=== PATIENT | male | born 2000 | race Caucasian/White ===

== ENCOUNTER 2018-11-24 09:30 | Emergency (ER) | payer SELFPAY ==
[2018-11-24 10:08] VITALS: BP 129/86
--- NOTE | 2018-11-24 10:44 | UC ---
Neck Pain HPI - HPI Summary HPI Summary: 18-year-old male comes in with a chief complaint of right neck pain. 2 days ago he turned his head to the right and had sudden onset of severe pain on the right side of his neck primarily upper neck. Pain is worse with any kind of movement primarily movement to the right. Occasionally he'll get pain shooting down into his arm. He has no pain or numbness or weakness in the arm now. No prior history of neck pain. Has been taking ibuprofen with minimal relief. - History of Current Complaint Chief Complaint: UCBackPain Stated Complaint: NECK PAIN Time Seen by Provider: 11/24/18 10:21 Pain Intensity: 7 - Allergies/Home Medications Allergies/Adverse Reactions: Allergies Allergy/AdvReac Type Severity Reaction Status Date / Time No Known Allergies Allergy Verified 11/24/18 10:08 Home Medications: Home Medications Ibuprofen 600 mg PO ONCE PRN 11/24/18 [History Confirmed 11/24/18] PMH/Surg Hx/FS Hx/Imm Hx Previously Healthy: Yes - Surgical History Surgical History: None - Family History Known Family History: Positive: Non-Contributory - Social History Alcohol Use: None Substance Use Type: None Smoking Status (MU): Never Smoked Tobacco Review of Systems All Other Systems Reviewed And Are Negative: Yes Constitutional: Positive: Negative Skin: Positive: Negative Eyes: Positive: Negative ENT: Positive: Negative Respiratory: Positive: Negative Cardiovascular: Positive: Negative Gastrointestinal: Positive: Negative Motor: Positive: Other - SEE HPI Neurovascular: Positive: Negative Musculoskeletal: Positive: Other: - SEE HPI Neurological: Positive: Negative Psychological: Positive: Negative Is Patient Immunocompromised?: No Physical Exam Triage Information Reviewed: Yes Appearance: Well-Appearing, Well-Nourished, Pain Distress - NILD WITH TURNING HEAD TO RT Vital Signs: Initial Vital Signs Temp 97.9 F 11/24/18 10:04 Pulse 68 11/24/18 10:04 Resp 18 11/24/18 10:04 BP 129/86 11/24/18 10:04 Pulse Ox 100 11/24/18 10:04 Vital Signs Reviewed: Yes Eye Exam: Normal Eyes: Positive: Conjunctiva Clear Neck: Positive: Tenderness @ - RT UPPER POSTERIOR, Other: - PAIN WITH ATTEMPT TO MOVE HEAD TO RT Respiratory: Positive: Lungs clear, Normal breath sounds, No respiratory distress Cardiovascular: Positive: RRR Musculoskeletal: Positive: Strength Intact Neurological: Positive: Alert, Muscle Tone Normal, Other: - NORMAL STRENGTH/ROM/ SENSATION B/L ARMS Psychological Exam: Normal Psychological: Positive: Age Appropriate Behavior Skin Exam: Normal Neck Pain Course/Dx - Course Course Of Treatment: Patient Name: DOROTHEA PERALTA Medical Record#: [id number] Ordering Physician: Desmond Del Castillo MD Acct.#: [id number] : 2000 Age: 18 Sex: M Location: [facility] Exam Date: 11/24/18 1038 ADM Status: REG ER Order Information: CT SPINE CERVICAL W/O Accession Number: [id number] CPT: 76051 HISTORY: RT SIDED NECK PAIN COMPARISONS: None relevant available at the time of dictation. TECHNIQUE: Multiple contiguous axial CT scans were obtained of the cervical spine without intravenous contrast, with coronal and sagittal multiplanar reformations. FINDINGS: BRAIN: The visualized brain is unremarkable CENTRAL CANAL: Evaluation of the central canal is limited on CT technique, however there is no obvious canalicular mass or epidural hemorrhage. ALIGNMENT: There is straightening of the normal cervical lordosis. VERTEBRAL BODIES: The odontoid process is intact. The atlantoaxial intervals are symmetric. The vertebral bodies are normal in attenuation, without fracture. JOINTS: There is no subluxation or dislocation MUSCULATURE: Unremarkable INTERVERTEBRAL DISCS: The intervertebral disc spaces are relatively preserved in height. AXIAL IMAGES: On axial images, there is no osseous neural foraminal narrowing or central canal stenosis. SOFT TISSUES: The visualized soft tissues of the neck are unremarkable. The prevertebral fat stripe is preserved. OTHER: None. IMPRESSION: STRAIGHTENING OF THE CERVICAL LORDOSIS. NO OSSEOUS NEURAL FORAMINAL NARROWING OR CENTRAL CANAL STENOSIS. <Electronically signed by Braulio Mera MD in [place]> 11/24/18 [address] report with the patient. Patient has no neurologic symptoms or radiculopathy here today. He has had pain shoot down his arm but that's very momentary and based on movement. Overall plan is rest ibuprofen and Flexeril as needed. Follow-up with sports medicine if not completely improved. Get reevaluated sooner if worse with pain weakness numbness or any other questions or concerns. - Differential Dx/Diagnosis Provider Diagnosis: Cervical strain Discharge - Sign-Out/Discharge Documenting (check all that apply): Patient Departure All imaging exams completed and their final reports reviewed: Yes - Discharge Plan Condition: Stable Disposition: HOME Prescriptions: Cyclobenzaprine TAB* [Flexeril 10 MG TAB*] 10 mg PO TID PRN #15 tab PRN Reason: Pain Patient Education Materials: Cervical Strain (ED), Acute Neck Pain (ED) Forms: *Work Release Referrals: Brittnee Banuelos PA [Primary Care Provider] - [facility] [Provider Group] Additional Instructions: FOLLOW UP WITH SPORTS MEDICINE. GET RECHECKED SOONER IF YOUR CONDITION WORSENS; PAIN, WEAKNESS, NUMBNESS OR ANY QUESTIONS OR CONCERNS. - Billing Disposition and Condition Condition: STABLE Disposition: Home
== END 2018-11-24 11:55 | disposition home or self-care (01) ==
LOC: UCEAST 09:30
DX: S16.1XXA Strain of muscle, fascia and tendon at neck level, initial encounter (principal); X50.0XXA Overexertion from strenuous movement or load, initial encounter; Y92.9 Unspecified place or not applicable
CPT/HCPCS: 72125; 99212; G0463